=== PATIENT | male | born 1980 | race Caucasian/White ===

== ENCOUNTER 2018-02-06 08:05 | Emergency (ER) | payer SELFPAY ==
[~2018-02-06] VITALS: Ht 160 cm; Wt 71.0 kg
[2018-02-06] MEDS ORDERED: KETOROLAC 60MG/2ML VIAL IM ONE (09:15)
[2018-02-06 09:34] VITALS: BP 135/87
== END 2018-02-06 11:43 | disposition home or self-care (01) ==
LOC: ER 08:05
DX: M25.572 Pain in left ankle and joints of left foot (principal); X50.1XXA Overexertion from prolonged static or awkward postures, initial encounter; Y93.9 Activity, unspecified; Y92.9 Unspecified place or not applicable; F17.200 Nicotine dependence, unspecified, uncomplicated
CPT/HCPCS: 73610; 96372; 99284; J1885